=== PATIENT | male | born 1975 | race Caucasian/White ===

== ENCOUNTER 2021-03-17 14:04 | Outpatient (CLI) | payer MEDICARE, OTHER | END 2021-03-17 14:05 | disposition home or self-care (01) | LOC: CSHMRI 14:04 | PROVIDERS: ATTEND Anesthesiology Pain Medicine | DX: M54.12 Radiculopathy, cervical region (principal); M47.812 Spondylosis without myelopathy or radiculopathy, cervical region; M50.223 Other cervical disc displacement at C6-C7 level; M48.02 Spinal stenosis, cervical region | CPT/HCPCS: 72141 ==